=== PATIENT | female | born 1980 | race Caucasian/White ===

== ENCOUNTER → 2016-12-08 | Outpatient (CLI) | payer BC ==
[~2016-12-08] MED LIST: MTR600X PO; OXYC-643 PO; PRENTAB26 PO
--- NOTE | 2016-12-08 14:08 | MAMMOGRAPHY REPORT ---
BILATERAL DIGITAL SCREENING MAMMOGRAM TOMOSYNTHESIS WITH CAD: 12/08/2016 TECHNIQUE: Breast tomosynthesis in addition to standard 2D mammography was performed. Current study was also evaluated with a Computer Aided Detection (CAD) system. COMPARISON: Comparison is made to exams dated: 11/29/2015 ultrasound and 11/29/2015 mammogram - [facility]. BREAST COMPOSITION: The tissue of both breasts is heterogeneously dense, which may obscure small ma sses. FINDINGS: No suspicious masses, calcifications, or areas of architectural distortion are noted in e ither breast. There has been no significant interval change compared to prior exams. A biopsy marke r clip is again noted in the left upper outer quadrant. IMPRESSION: ACR BI-RADS CATEGORY 2: BENIGN There is no mammographic evidence of malignancy. A 1 year screening mammogram is recommended. The p atient will receive written notification of the results. Approximately 10% of breast cancers are not detected with mammography. A negative mammographic repor t should not delay biopsy if a clinically suggestive mass is present. Dora Maguire M.D. ah/:12/08/2016 12:36:39 [employer] Worker: Nena ARRINGTON(Louis)(Latrell), [facility] letter sent: Normal 1/2 BI-RADS Code: ACR BI-RADS Category 2: Benign
== END | disposition home or self-care (01) ==
LOC: C.MAMM 08:46
PROVIDERS: ATTEND Obstetrics & Gynecology
DX: Z12.31 Encounter for screening mammogram for malignant neoplasm of breast (principal)

== ENCOUNTER → 2017-11-13 | Outpatient (CLI) | payer BC | END | disposition home or self-care (01) | LOC: C.PAPS 11:52 | PROVIDERS: ATTEND Obstetrics & Gynecology | DX: Z01.419 Encounter for gynecological examination (general) (routine) without abnormal findings (principal) ==

== ENCOUNTER → 2017-12-14 | Outpatient (CLI) | payer BC ==
--- NOTE | 2017-12-14 11:05 | DIAGNOSTIC IMAGING REPORT ---
SOFT TISS HEAD/NECK-THYROID HISTORY: Pain. Nodule. ENLARGED LYMPH NODES,HEADACHES COMPARISON: None. FINDINGS: Evaluation of the submandibular glands shows both submandibular glands to be generally symmetric. There is a superficial lymph node involving the right submandibular gland at the site of clinically palpable nodularity. This measures 1.1 x 0.3 cm. It has benign morphologic characteristics. No additional abnormalities identified. IMPRESSION: 1. Normal submandibular glands. 2. Superficial benign appearing lymph node anterior to the right submandibular gland at the site of clinically palpable nodularity. The above report was generated using voice recognition software. It may contain grammatical, syntax or spelling errors. Electronically signed by: Justino Kevin M.D. 12/14/2017 11:03 AM Dictated Date/Time: 12/14/2017 11:02 AM
== END | disposition home or self-care (01) ==
LOC: C.ULTR 10:18
PROVIDERS: ATTEND Nurse Practitioner Family
DX: R59.0 Localized enlarged lymph nodes (principal); R51 Headache

== ENCOUNTER → 2017-12-14 | Outpatient (CLI) | payer BC ==
--- NOTE | 2017-12-14 14:43 | MAMMOGRAPHY REPORT ---
BILATERAL DIGITAL SCREENING MAMMOGRAM TOMOSYNTHESIS WITH CAD: 12/14/2017 CLINICAL HISTORY: Routine screening. Patient has no complaints. TECHNIQUE: Breast tomosynthesis in addition to standard 2D mammography was performed. Current study was also evaluated with a Computer Aided Detection (CAD) system. COMPARISON: Comparison is made to exams dated: 12/08/2016 mammogram, 11/29/2015 ultrasound, and 6 mammogram - [facility]. BREAST COMPOSITION: The tissue of both breasts is heterogeneously dense, which may obscure small mas ses. FINDINGS: The parenchymal pattern is unchanged. No developing mass, architectural distortion or clus ter of suspicious microcalcifications is seen in either breast. IMPRESSION: ACR BI-RADS CATEGORY 2: BENIGN There is no mammographic evidence of malignancy. A 1 year screening mammogram is recommended. The pa tient will receive written notification of the results. Approximately 10% of breast cancers are not detected with mammography. A negative mammographic report should not delay biopsy if a clinically suggestive mass is present. Xiomy Miramontes M.D. ay/:12/14/2017 09:39:05 Senior [employer] Developer: oJyce ARRINGTON(Louis)(M), [facility] letter sent: Normal 1/2 BI-RADS Code: ACR BI-RADS Category 2: Benign
== END | disposition home or self-care (01) ==
LOC: C.MAMM 08:53
PROVIDERS: ATTEND Obstetrics & Gynecology
DX: Z12.31 Encounter for screening mammogram for malignant neoplasm of breast (principal)

== ENCOUNTER → 2018-05-30 | Outpatient (CLI) | payer BC ==
[~2018-05-30] MED LIST changes: +GADAVIST IV PRN
--- NOTE | 2018-05-31 15:28 | MAMMOGRAPHY REPORT ---
BREAST MRI OF BOTH BREASTS: 05/30/2018 CLINICAL HISTORY: Family history of breast cancer. Dense breasts mammographically. COMPARISON: Comparison is made to exams dated: 12/14/2017 mammogram, 12/08/2016 mammogram, 11/29/2015 ul trasound, and 11/29/2015 mammogram - [facility]. Technique: The patient was placed prone in a dedicated breast imaging coil. Precontrast axial T1-carol ghted, axial T2-weighted fat saturation, and axial T1-weighted fat saturation images were obtained. After the administration of 7.5 mL of Gadavist IV contrast, sequential T1-weighted fat saturation di ges were obtained. Subtraction images were obtained of the dynamic contrast enhanced sequences, and 3-D reformations were performed. The [employer] software was used for kinetic analysis. Findings: There is mild background parenchymal enhancement involving bilateral breasts. There are no suspiciou s enhancing masses or areas of abnormal non-mass enhancement seen within either breast. Susceptibili ty artifact is seen within the left upper outer quadrant related to biopsy marker clip from prior tesfaye ign biopsy. There is no evidence of axillary adenopathy. The chest wall structures are negative. Visualized por tions of the extramammary soft tissues are grossly unremarkable. IMPRESSION: ACR BI-RADS CATEGORY 2: BENIGN No MRI evidence of malignancy in either breast. Recommend screening bilateral breast MRI in one year . The patient is also due for bilateral screening mammograms November 2018. Dora Maguire M.D. /:05/30/2018 16:13:50 Small Business Banking Officer: rubber chemist, [facility] letter sent: Normal 1/2 BI-RADS Code: ACR BI-RADS Category 2: Benign
== END | disposition home or self-care (01) ==
LOC: C.MRI 10:32
PROVIDERS: ATTEND Obstetrics & Gynecology
DX: R92.2 Inconclusive mammogram (principal); Z80.3 Family history of malignant neoplasm of breast